=== PATIENT | male | born 1970 | race Caucasian/White ===

== ENCOUNTER 2016-10-28 11:31 | Observation (INO) | payer BC, MEDICARE ==
[2016-10-21 13:30] LABS: HEMATOCRIT 36.9 % (40.0-51.0); HEMOGLOBIN 11.7 g/dL (13.6-17.8)
[2016-10-21 13:45] LABS: BUN (BLOOD UREA NITROGEN) 46 MG/DL (6-23); CHLORIDE, SERUM 112 MMOL/L (96-112); CO2 (CARBON DIOXIDE) 23 MMOL/L (24-34); GFR AFRICAN AMERICAN 23 ML/MIN (>=60); GFR NON AFRICAN AMERICAN 20 ML/MIN (>=60); GLUCOSE, SERUM 121 MG/DL (60-99); POTASSIUM, SERUM 4.7 MMOL/L (3.5-5.3); SODIUM, SERUM 142 MMOL/L (135-148)
--- NOTE | ~2016-10-28 | OP ---
Record Of Operation [facility] [address] [place]. [address] NAME: BEATA OSORIO : 68 STATUS : DIS Dang PAT#: [id number] AGE: 46 ADM/REG DATE : 10/28/16 MR#: [id number] REPORT SERV DATE: 11/07/16 DICTATED BY: NIELS MILLER DATE: 11/07/16 REPORT STATUS : Draft TRANSCRIBED BY: MODL DATE: 11/07/16 DATE OF PROCEDURE: 10/28/2016 PREOPERATIVE DIAGNOSES: Bilateral maxillary and ethmoid sinusitis with deviated nasal septum. POSTOPERATIVE DIAGNOSES: Bilateral maxillary and ethmoid sinusitis with deviated nasal septum. PROCEDURE: Bilateral endoscopic maxillary antrostomy with right anterior ethmoidectomy and left total ethmoidectomy and septoplasty. ANESTHESIA: General endotracheal. ESTIMATED BLOOD LOSS: 200 mL. INTRAOPERATIVE FLUIDS: 600 mL crystalloid. INTRAOPERATIVE FINDINGS: Moderate chronic sinusitis involving the maxillary and ethmoid sinuses bilaterally. The chronic mucosal thickening in the ethmoid sinuses on the left side extended into the posterior ethmoid sinuses. I did, therefore, perform a total ethmoidectomy on the left side. OPERATIVE PROCEDURE: The patient was identified in the holding room, transferred to the operating room. In the operating room, the patient was placed on the operating room table in supine position. Following induction of anesthesia, the patient was intubated without difficulty. Afrin-soaked pledgets were placed to the nose, bilaterally. The septum was injected with 1% lidocaine with 1:100,000 epinephrine in preparation for his septoplasty. The patient was draped in preparation for his nasal surgery. A rigid nasal endoscopy was performed, which reveal limitation of access to the left middle meatus due to the patient's nasal septal deformity. I did, therefore, initiate the surgery on the right side. The right uncinate process was injected with 1% lidocaine with 1:100,000 epinephrine. The uncinate process was removed. Additional bone and soft tissue was removed with the use of the sinus shaving instrumentation to identify the natural maxillary sinus ostium. The natural maxillary sinus ostium was enlarged, removing tissue posteriorly and inferiorly. Examination of the sinus with the 30-degree scope revealed moderate mucosal thickening within the maxillary sinus with no purulent drainage or debris identified. The anterior ethmoid air cells were then opened using blunt dissection. There was moderate tenacious thickening of the ethmoid sinus mucosa, which was removed. The anterior ethmoid air cells were dissected superiorly into the area of the nasal frontal recess. With the assistance of the 30 and 70-degree scope, additional bone and soft tissue was removed from the nasofrontal recess, creating a wide opening into the right frontal sinus. With the appearance of the sinus at this point, I opted not to place a propel splint on the right side. A septoplasty was then performed to gain access to the left middle meatus. A [place] incision was created in the left side of the nose. A mucoperichondrial flap was developed and extended posteriorly at the bony cartilaginous junction. An incision was created through the Record Of Operation [address] [place]. [address] NAME: BEATA OSORIO : 68 STATUS : DIS Dang PAT#: [id number] AGE: 46 ADM/REG DATE : 10/28/16 MR#: [id number] REPORT SERV DATE: 11/07/16 DICTATED BY: NIELS MILLER DATE: 11/07/16 REPORT STATUS : Draft TRANSCRIBED BY: SHANNON DATE: 11/07/16 quadrangular cartilage, leaving a greater than 1 cm caudal strut. Mucoperichondrial flap was then developed in a similar fashion in the right side of the nose. A strip of deflected cartilage was removed from the floor of the nose, removing a width of approximately 8 mm of cartilage from this area. The quadrangular cartilage was then divided from the bony nasal septum, leaving a strong dorsal attachment. This did allow the remaining quadrangular cartilage to return to the midline and no further cartilaginous resection was required. There was a deformity of the bony nasal septum to the left side at the junction of the perpendicular plate of the ethmoid and the vomer which was resected. There was a persistent spur of bone along the floor of the nose related to hypertrophic bone along the nasal crest, which was removed with the use of an osteotome. The flaps were placed and the septum was noted to be in the midline. The [place] incision was closed with interrupted 4-0 chromic suture. A quilting stitch was placed. With the septum returned to the midline, there was marked improvement in access to the left middle meatus. A left endoscopic maxillary antrostomy was then performed in similar fashion to that described on the right side. Once again, there was moderate inflammation of the mucosa within the left maxillary sinus with no purulent drainage or debris identified. On the left side, the inflamed tenacious mucosa within the ethmoid sinuses extended into the posterior ethmoid air cells. I did, therefore, perform a total ethmoidectomy on the left side. The dissection carried posteriorly to the base of the sphenoid. Dissection was carried along the skull base for removal of the more anterior ethmoid air cells. With the assistance of the 30 and 70 degree scope, additional bone and soft tissue was removed from the nasofrontal recess, extending into the left frontal sinus. The patient did have a relatively small opening into the frontal sinus. For which, I was concerned for possible stenosis of this area. I did, therefore, place a mini propel splint from the nasal frontal recess extending into the frontal sinus. At the end of the operative procedure, there was no significant bleeding. Rolled Gelfoam was placed into the middle meatus, bilaterally. [place] splints were applied to the nose. The patient was subsequently awakened from anesthesia, extubated in the operating room, and transported to the recovery room in good condition. The patient tolerated the procedure well. There were no apparent complications. Specimens include bilateral maxillary and ethmoid sinus contents with nasal septal bone and cartilage. KEVON/SHANNON Niels Miller M.D. / [id number] CC: Kim Kraus M.D.
[~2016-10-28 11:31] MED LIST: APRES25 PO; ARAVA20 PO; ASAB PO; CARDCD180 PO; CELLCEPT2 PO; CELLCEPT5 PO; COMBIGAN0.2 MG/0.5 OPH; COMBIGAN0.2 MG/0.5 TOP; COREG12 PO; COREG25 PO; COREG6 PO; CREON DR 3,0001 EACH PO; CREON12000 UNT PO; DEMA100 PO; FIBERCON PO; FLEX PO; GENGRAF25 MG OR; HALF81 PO; HUMALOG SC; HUMALOGPEN SC; HYDRALAZINE100 MG PO; IMOD PO; L40 PO; LANTUS SC; LANTUSCART SC; LEVOTHYROXIN125 MCG PO; LEVOTHYROXIN150 MCG PO; MYFORTIC180 MG PO; MYFORTIC360 MG PO; NEXIUM40 PO; NORV5 PO; P5 PO; PHOSLO PO; PRILO PO; PRILOSEC40 MG PO; PRIN10 PO; PRIN2.5 PO; PROGRAF0.5 PO; PROGRAF1; PROGRAF1 PO; PROTONIX PO; REMERON30 MG PO; SODBICAR10 PO; SYN.15 PO; VALCYTE PO; VITAMIN B-122500 MCG IV/IM; VITAMIN D1000 UNI1 PO; VITAMIN D31000 UNIT PO; VITAMIN D400 UNI1 PO; XALAT OPH; Z100 PO; ZEMPLAR1 PO; ZOCOR10 PO; ZOCOR5 MG PO; [UNRECOGNIZED DRUG - CODE] SC; [UNRECOGNIZED DRUG - OTHER] PO; [UNRECOGNIZED DRUG - OTHER] PO
== END 2016-10-29 10:57 | disposition home or self-care (01) ==
LOC: SDC 11:31 → 4SO 19:20
PROVIDERS: Otolaryngology
PROC: 099Q4ZZ Drainage of Right Maxillary Sinus, Percutaneous Endoscopic Approach (ICD-10-PCS; 2016-10-28)
PROC: 099R4ZZ Drainage of Left Maxillary Sinus, Percutaneous Endoscopic Approach (ICD-10-PCS; 2016-10-28)
PROC: 09BU4ZZ Excision of Right Ethmoid Sinus, Percutaneous Endoscopic Approach (ICD-10-PCS; 2016-10-28)
PROC: 09BV4ZZ Excision of Left Ethmoid Sinus, Percutaneous Endoscopic Approach (ICD-10-PCS; 2016-10-28)
PROC: 09SM0ZZ Reposition Nasal Septum, Open Approach (ICD-10-PCS; principal; 2016-10-28 13:15)
DX: J32.8 Other chronic sinusitis (principal); J34.2 Deviated nasal septum; E03.9 Hypothyroidism, unspecified; E78.00 Pure hypercholesterolemia, unspecified; I12.9 Hypertensive chronic kidney disease with stage 1 through stage 4 chronic kidney disease, or unspecified chronic kidney disease; N18.9 Chronic kidney disease, unspecified; E11.9 Type 2 diabetes mellitus without complications; F32.9 Major depressive disorder, single episode, unspecified; Z88.1 Allergy status to other antibiotic agents; Z88.8 Allergy status to other drugs, medicaments and biological substances; Z98.41 Cataract extraction status, right eye; Z98.42 Cataract extraction status, left eye; Z98.890 Other specified postprocedural states; Z90.49 Acquired absence of other specified parts of digestive tract; Z79.899 Other long term (current) drug therapy
CPT/HCPCS: 80048; 82962; 85014; 85018; 88305; 93005; 96374; 96376; A9270-GY; G0378; J0295; J0690; J1720; J2250; J2270; J2405; J2550; J2710; J3010